=== PATIENT | female | born 1975 | race Two or more races ===

== ENCOUNTER 2024-07-23 03:31 | Inpatient (IN) | payer MEDICAID, OTHER ==
[~2024-07-23] VITALS: Ht 154.9 cm; Wt 54.5 kg
--- NOTE | 2024-07-23 03:59 | ED.PDOC ---
History of Present Illness HPI Comments 49-year-old female complained of some constipation for the last 2 days but then take some MiraLax and now has had some loose stools and abdominal cramping diffusely for the last 1 day. Patient was brought in by EMS Chief Complaint: Constipation Time Seen by MD: 03:44 Allergies: Coded Allergies: Penicillins (Verified Allergy, Unknown, 07/23/24) Information Source: Patient Mode of Arrival: EMS Severity: Moderate Timing: Days Past Medical History PAST MEDICAL HISTORY: Denies Surgical History: Unknown Constitutional: reports: malaise Gastrointestinal: reports: abdominal pain, constipated, diarrhea Physical Exam General Appearance: Mild Distress HEENT: Normal ENT Inspection, Pharynx Normal, TMs Normal Neck: Full Range of Motion, Non-Tender, Normal, Normal Inspection Respiratory: Chest Non-Tender, Lungs Clear, No Accessory Muscle Use, No Respiratory Distress, Normal Breath Sounds Cardiovascular: No Edema, No JVD, No Murmur, No Gallop, Normal Peripheral Pulses, Regular Rate/Rhythm Breast Exam: Deferred Gastrointestinal: No Organomegaly, Non Tender, No Pulsatile Mass, Normal Bowel Sounds, Soft Genitalia: Deferred Pelvic: Deferred Rectal: Deferred Extremities: No calf tenderness, Normal capillary refill, Normal inspection, Normal range of motion, Non-tender, No pedal edema Musculoskeletal : Apperance: Normal Neurologic: Alert, information security officer II-XII nml as Tested, No Motor Deficits, Normal Affect, Normal Mood, No Sensory Deficits Cerebellar Function: Normal Reflexes: Normal Skin: Dry, Normal Color, Warm Lymphatic: No Adenopathy Was a procedure done? Was a procedure done?: No Differential Dx Considerations may include: Differential diagnosis includes but is not limited to: appendicitis, divert iculitis, colitis, urinary tract infection, ureteral colic / stone, bowel obstruction, and others X-Ray, Labs, Meds, VS Vital Signs Date Time Temp Pulse Resp B/P (MAP) Pulse Ox O2 Delivery O2 Flow Rate FiO2 07/23/24 04:59 16 99 Room Air* 0 21 07/23/24 04:47 97.6 89 22 106/76 (86) 100 97.6 07/23/24 03:37 96.6 69 18 156/90 (112) 96 Lab Test 07/23/24 05:00 07/23/24 04:05 Range/Units Urine Color Pending Urine Clarity Pending Urine pH Pending Urine Specific [place] Pending Urine Protein Pending Urine Ketones Pending Urine Blood Pending Urine Nitrite Pending Urine Bilirubin Pending Urine Urobilinogen Pending Urine Leukocyte Esterase Pending Urine RBC Pending Urine Microscopic WBC Pending Urine Squamous Epithelial Cells Pending Urine Bacteria Pending Urine Glucose Pending White Blood Count 18.4 H 4.4-10.8 10^3/uL Red Blood Count 5.15 4.0-5.20 10^6/uL Hemoglobin 15.2 12.2-16.2 g/dL Hematocrit 46.5 H 36.0-46.0 % Mean Corpuscular Volume 90.4 80.0-100.0 fL Mean Corpuscular Hemoglobin 29.6 28.0-32.0 pg Mean Corpuscular Hemoglobin Concent 32.7 32.0-36.0 g/dL Red Cell Distribution Width 15.9 H 11.8-14.3 % Platelet Count 362 140-450 10^3/uL Mean Platelet Volume 9.0 6.9-10.8 fL Neutrophils (%) (Auto) 77.0 37.0-80.0 % Lymphocytes (%) (Auto) 17.9 10.0-50.0 % Monocytes (%) (Auto) 4.2 0.0-12.0 % Eosinophils (%) (Auto) 0.6 0.0-7.0 % Basophils (%) (Auto) 0.3 0.0-2.0 % Neutrophils # (Auto) 14.1 H 1.6-8.6 10 ^3/uL Lymphocytes # (Auto) 3.3 0.4-5.4 10 ^3/uL Monocytes # (Auto) 0.8 0-1.3 10 ^3/uL Eosinophils # (Auto) 0.1 0-0.8 10 ^3/uL Basophils # (Auto) 0.1 0-0.2 10 ^3/uL Nucleated Red Blood Cells 0.1 % Sodium Level Pending Potassium Level Pending Chloride Level Pending Carbon Dioxide Level Pending Anion Gap Pending Blood Urea Nitrogen Pending Creatinine Pending Glomerular Filtration Rate Calc Pending BUN/Creatinine Ratio Pending Serum Glucose Pending Calcium Level Pending Total Bilirubin Pending Aspartate Amino Transferase (AST) Pending Alanine Aminotransferase (ALT) Pending Alkaline Phosphatase Pending Total Protein Pending Albumin Pending Lipase Pending Current Medications Medications (Trade) Dose Ordered Sig/Evan Route Start Time Stop Time Status Last Admin Ondansetron HCl (Zofran Po) 8 mg ONCE ONCE PO 07/23/24 03:45 07/23/24 03:47 DC 07/23/24 04:53 Acetaminophen/ Hydrocodone Bitart (Brut[place] 10/325MG Tab) 1 tab ONCE ONCE PO 07/23/24 03:45 07/23/24 03:47 DC 07/23/24 04:53 Time of 1ST Reevaluation: 03:56 Reevaluation 1ST: Unchanged Patient Education/Counseling: Diagnosis, Treatment Family Education/Counseling: No Family Present Departure 1 Departure Time of Disposition: 05:00 Impression: Primary Impression: Abdominal pain Disposition: 01 HOME / SELF CARE / HOMELESS Condition: Stable Discharged With: Self Critical Care Note Critical Care Time?: No Stability Stability form required: No Heart Score Heart Score: Heart Score Response (Comments) Value History N/A 0 EKG N/A 0 Age N/A 0 Risk Factors N/A 0 Troponin N/A 0 Total 0 SUKUMAR MALAGON MD Jul 23, 2024 03:58
--- NOTE | 2024-07-23 04:45 | DVH ---
Date: 07/23/2024 04:31 AM Examination: XY KUB ABDOMEN SINGLE VIEW History: abd pain, diarrhea Comparison: None TECHNIQUE: Frontal views of the abdomen was obtained. FINDINGS: Bowel gas pattern is unremarkable. Surgical clips project over the right upper quadrant. The lung bases are unremarkable. No acute osseous abnormality identified. IMPRESSION: Nonobstructive bowel gas pattern.
[2024-07-23 04:46] LABS: Basophils # (auto) 0.1 10 ^3/uL (0-0.2); Basophils % (auto) 0.3 % (0.0-2.0); Eosinophils # (auto) 0.1 10 ^3/uL (0-0.8); Eosinophils % (auto) 0.6 % (0.0-7.0); Hematocrit 46.5 % (36.0-46.0); Hemoglobin 15.2 g/dL (12.2-16.2); Lymphocytes # (auto) 3.3 10 ^3/uL (0.4-5.4); Lymphocytes % (auto) 17.9 % (10.0-50.0); Mean Corpuscular Hemoglobin 29.6 pg (28.0-32.0); Mean Corpuscular Hgb Conc. 32.7 g/dL (32.0-36.0); Mean Corpuscular Volume 90.4 fL (80.0-100.0); Monocytes # (auto) 0.8 10 ^3/uL (0-1.3); Monocytes % (auto) 4.2 % (0.0-12.0); Neutrophils # (auto) 14.1 10 ^3/uL (1.6-8.6); Nucleated Red Blood Cells % 0.1 %; Platelet Count (auto) 362 10^3/uL (140-450); Red Blood Cells 5.15 10^6/uL (4.0-5.20); Red Cell Distribution Width 15.9 % (11.8-14.3); White Blood Cell 18.4 10^3/uL (4.4-10.8)
[2024-07-23] MEDS: HYDROcodone-ACET 10/325MG TAB PO ONE (04:53)
[2024-07-23] MEDS: ONDANSETRON ODT 4 MG TAB PO ONE (04:53)
[2024-07-23 04:59] VITALS: RESP 16; O2SAT 99
[2024-07-23 05:02] LABS: Alanine Aminotransferase 23 U/L (7-40); Alkaline Phosphatase 111 U/L (46-116); Anion Gap 8 (5-15); Aspartate Aminotransferase 19 U/L (13-40); BUN/Creatinine Ratio 10.7 (10.0-20.0); Calcium 10.2 mg/dL (8.7-10.4); Carbon Dioxide 29 mmol/L (20-31); Chloride 103 mmol/L (98-107); Potassium 3.6 mmol/L (3.5-5.1); Sodium 140 mmol/L (136-145)
[2024-07-23 05:03] LABS: Bilirubin, Total 0.5 mg/dL (0.2-1.0); Total Protein 7.7 g/dL (5.7-8.2)
[2024-07-23 05:15] LABS: Albumin 4.9 g/dL (3.2-4.8); Blood Urea Nitrogen 8 mg/dL (9-23); Glucose 118 mg/dL (74-106); Lipase 103 U/L (12-53)
[2024-07-23] MEDS: SODIUM CHLORIDE 0.9% 1,000 ML IV ONE (05:48)
[2024-07-23] MEDS: IOHEXOL 300 MG/ML 100ML BOTTLE IJ ONE (06:08)
--- NOTE | 2024-07-23 06:23 | DVH ---
EXAM: CT Abdomen and Pelvis With Intravenous Contrast CLINICAL INDICATION: abd pain TECHNIQUE: Axial computed tomography images of the abdomen and pelvis with intravenous contrast. Th is CT exam was performed using one or more of the following dose reduction techniques: automated exp osure control, adjustment of the mA and/or kV according to patient size, and/or use of iterative omari nstruction technique. CONTRAST: COMPARISON: None FINDINGS: LUNG BASES: Unremarkable. No mass. No consolidation. MEDIASTINUM: Small esophageal hiatal hernia. ABDOMEN: LIVER: Hepatomegaly with fatty infiltration. GALLBLADDER AND BILE DUCTS: Gallbladder is surgically absent. No ductal dilation. PANCREAS: Unremarkable. No mass. No ductal dilation. SPLEEN: Unremarkable. No splenomegaly. ADRENALS: Unremarkable. No mass. KIDNEYS AND URETERS: Unremarkable. No stones within either kidney. No hydronephrosis. STOMACH AND BOWEL: Fluid-filled bowels with air-fluid levels may suggest enterocolitis. No pneumope ritoneum or bowel obstruction. Clinical correlation is recommended. PELVIS: APPENDIX: No findings to suggest acute appendicitis. BLADDER: Unremarkable. No mass. REPRODUCTIVE: Unremarkable as visualized. ABDOMEN and PELVIS: INTRAPERITONEAL SPACE: See above. BONES/JOINTS: No acute fracture. No dislocation. SOFT TISSUES: Umbilical hernia containing fat. VASCULATURE: Unremarkable. No abdominal aortic aneurysm. LYMPH NODES: Unremarkable. No enlarged lymph nodes. OTHER FINDINGS: . IMPRESSION: 1. Fluid-filled bowels with air-fluid levels may suggest enterocolitis. No pneumoperitoneum or bowel obstruction. Clinical correlation is recommended. 2. Hepatomegaly with fatty infiltration. 3. Small esophageal hiatal hernia. 4. Umbilical hernia containing fat. 5. No obstructive uropathy.
[2024-07-23 06:25] LABS: Urine Amorphous Crystal FEW /hpf (None Seen); Urine Bacteria FEW /hpf (None Seen); Urine Blood TRACE /uL (Negative); Urine Clarity Turbid (Clear); Urine Color Yellow (Yellow); Urine Mucus FEW (None Seen); Urine Protein, UAD 1+ (Negative); Urine Specific Gravity 1.026 (1.001-1.035); Urine Squamous Epithelial Cell MOD /hpf (<5); Urine Urobilinogen Normal (Negative); Urine WBC 4 /HPF (0-5)
[2024-07-23] MEDS ORDERED: ceFAZolin 2 GM/D5W50ml 50 ML IV ONE (07:30)
[2024-07-23] MEDS: metroNIDAZOLE 500MG/100ML 100 ML IV ONE (07:47)
[2024-07-23] MEDS: CEFEPIME 2GM/50ML NS 50 ML IV ONE (09:18)
[2024-07-23] MEDS ORDERED: SODIUM CHLORIDE 0.9% 1,000 ML IV SCH (14:15)
[2024-07-23] MEDS ORDERED: MORPHINE SULFATE INJ 2 MG/ml SYRG IV PRN (14:15)
[2024-07-23] MEDS ORDERED: HYDROcodone-ACET 5/325MG TAB PO PRN (14:15)
[2024-07-23] MEDS ORDERED: ONDANSETRON HCL 4 MG/2 ML VIAL IV PRN (14:15)
[2024-07-23] MEDS ORDERED: ACETAMINOPHEN 325 MG TAB PO PRN (14:15)
--- NOTE | 2024-07-23 14:18 | DVHHP2 ---
History of Present Illness Reason for Visit: Abdominal pain History of Present Illness 49-year-old female with a known history of chronic asthma, previous history of partial abdominal hysterectomy, cholecystectomy who initially presented to the hospital with abdominal pain. Patient stated that she was scheduled for colonoscopy by gastric polyp tomorrow and she was given GoLYTELY. After starting dialysis started having worsening abdominal pain. Patient was eventually came to ER, CT abdominal pelvis was done which gradually enterocolitis. Patient denies any vomiting but does complain of nausea. Denies any fever chills neurologic any diarrhea. Pulmonary: Asthma Past Surgical History: Cholecystectomy, Hysterectomy Family History: None Review of Systems Review of Systems Twelve review of systems are negative besides mentioned above. Allergies: Coded Allergies: Penicillins (Verified Allergy, Unknown, 07/23/24) Exam Vital Signs Vital Signs Date Time Temp Pulse Resp B/P (MAP) Pulse Ox O2 Delivery O2 Flow Rate FiO2 07/23/24 12:37 97.8 100 18 106/69 (81) 99 97.8 07/23/24 04:59 Room Air* 0 21 Exam HEENT pupils are reactive Neck is supple CVS S1-S2 regular rate and rhythm GI positive bowel sound, soft nondistended nontender no guarding no rigidity. Extremity no edema ORDERLY no motor deficit Labs/Xrays Labs Test 07/23/24 05:00 07/23/24 04:05 Range/Units Urine Color Yellow Yellow Urine Clarity Turbid H Clear Urine pH 7.0 5.0-9.0 Urine Specific [place] 1.026 1.001-1.035 Urine Protein 1+ H Negative Urine Ketones Negative Negative Urine Blood Trace H Negative /uL Urine Nitrite Negative Negative Urine Bilirubin Negative Negative Urine Urobilinogen Normal Negative mg/dL Urine Leukocyte Esterase Negative Negative /uL Urine RBC 4 0 - 4 /hpf Urine Microscopic WBC 4 0-5 /HPF Urine Squamous Epithelial Cells Mod <5 /hpf Urine Amorphous Crystals Few None Seen /hpf Urine Bacteria Few H None Seen /hpf Urine Mucus Few None Seen Urine Glucose Trace Normal mg/dL White Blood Count 18.4 H 4.4-10.8 10^3/uL Red Blood Count 5.15 4.0-5.20 10^6/uL Hemoglobin 15.2 12.2-16.2 g/dL Hematocrit 46.5 H 36.0-46.0 % Mean Corpuscular Volume 90.4 80.0-100.0 fL Mean Corpuscular Hemoglobin 29.6 28.0-32.0 pg Mean Corpuscular Hemoglobin Concent 32.7 32.0-36.0 g/dL Red Cell Distribution Width 15.9 H 11.8-14.3 % Platelet Count 362 140-450 10^3/uL Mean Platelet Volume 9.0 6.9-10.8 fL Neutrophils (%) (Auto) 77.0 37.0-80.0 % Lymphocytes (%) (Auto) 17.9 10.0-50.0 % Monocytes (%) (Auto) 4.2 0.0-12.0 % Eosinophils (%) (Auto) 0.6 0.0-7.0 % Basophils (%) (Auto) 0.3 0.0-2.0 % Neutrophils # (Auto) 14.1 H 1.6-8.6 10 ^3/uL Lymphocytes # (Auto) 3.3 0.4-5.4 10 ^3/uL Monocytes # (Auto) 0.8 0-1.3 10 ^3/uL Eosinophils # (Auto) 0.1 0-0.8 10 ^3/uL Basophils # (Auto) 0.1 0-0.2 10 ^3/uL Nucleated Red Blood Cells 0.1 % Sodium Level 140 136-145 mmol/L Potassium Level 3.6 3.5-5.1 mmol/L Chloride Level 103 98-107 mmol/L Carbon Dioxide Level 29 20-31 mmol/L Anion Gap 8 5-15 Blood Urea Nitrogen 8 L 9-23 mg/dL Creatinine 0.75 0.550-1.02 mg/dL Glomerular Filtration Rate Calc 99 >90 mL/min BUN/Creatinine Ratio 10.7 10.0-20.0 Serum Glucose 118 H 74-106 mg/dL Lactic Acid Level 1.6 0.4-2.0 mmol/L Calcium Level 10.2 8.7-10.4 mg/dL Total Bilirubin 0.5 0.2-1.0 mg/dL Aspartate Amino Transferase (AST) 19 13-40 U/L Alanine Aminotransferase (ALT) 23 7-40 U/L Alkaline Phosphatase 111 46-116 U/L Total Protein 7.7 5.7-8.2 g/dL Albumin 4.9 H 3.2-4.8 g/dL Lipase 103 H 12-53 U/L Assessment/Plan Assessment/Plan 49-year-old female with a known history of chronic asthma, abdominal pain was scheduled for colonoscopy as an outpatient presented to the hospital with worsening abdominal pain after drinking GoLYTELY found to have 1. Abdominal pain/enterocolitis 2. Chronic asthma -admit to med surge, IV fluids, pain meds, clear liquid diet and advance as tolerated [facility] was consulted who recommended outpatient follow up with them no indication for inpatient colonoscopy. Plan discussed with: Patient My Orders Orders - LUCY WILL MD Procedure Category Date Status Time Admit ADMIT 07/23/24 Transmitted 14:07 Code Status CODE 07/23/24 Transmitted 14:07 0.9% Ns 1000 Ml PHA 07/23/24 Transmitted 14:15 Hydrocodone-Acet PHA 07/23/24 Transmitted 5/325mg Tab ([place] 14:15 Ondansetron Hcl PHA 07/23/24 Transmitted (Zofran) 14:15 Complete Blood Count LAB 07/24/24 Verified 04:00 Comprehensive LAB 07/24/24 Verified Metabolic Panel 04:00 Condition: Fair STEPAN 07/23/24 Transmitted 14:07 Acetaminophen Tablet PHA 07/23/24 Transmitted (Tylenol Tablet) 14:15 Clear Liq Diet DIET 07/23/24 Transmitted Dinner Morphine Sulfate PHA 07/23/24 Transmitted Injection 14:15 Date of Service: Jul 23, 2024 Billing Provider: LUCY WILL MD Common Visit Codes: NOT BILLABLE LUCY WILL MD Jul 23, 2024 14:18
[2024-07-23] MEDS ORDERED: cefTRIAXone 1GM/50ML D5W 50 ML IV SCH (14:30)
[2024-07-23] MEDS ORDERED: metroNIDAZOLE 500MG/100ML 100 ML IV SCH (14:30)
[2024-07-23 17:11] VITALS: BP 132/61; PULSE 82; RESP 20; TEMP 97.6; O2SAT 98
[2024-07-23 17:42] VITALS: BP 132/64; PULSE 82; RESP 18; RESP 20; TEMP 97.6; O2SAT 98
[2024-07-23 20:00] VITALS: PULSE 90
[2024-07-23] MEDS: ONDANSETRON HCL 4 MG/2 ML VIAL IV PRN (20:56)
[2024-07-23] MEDS: HYDROcodone-ACET 5/325MG TAB PO PRN (20:58)
[2024-07-23] MEDS: ACETAMINOPHEN 325 MG TAB PO PRN (20:58)
[2024-07-23 21:00] VITALS: BP 103/74; PULSE 82; RESP 16; TEMP 98.1; O2SAT 96
[2024-07-23] MEDS: metroNIDAZOLE 500MG/100ML 100 ML IV SCH (22:00)
[2024-07-23] MEDS: SODIUM CHLORIDE 0.9% 1,000 ML IV SCH (22:50)
[2024-07-24] VITALS (7 sets, daily range): BP systolic 101–137; BP diastolic 62–82; PULSE 79–83; RESP 16–20; TEMP 97.8–98.3; O2SAT 96–98
[2024-07-24] MEDS: MORPHINE SULFATE INJ 2 MG/ml SYRG IV PRN (06:01)
[2024-07-24 06:42] LABS: Alanine Aminotransferase 19 U/L (7-40); Albumin 3.8 g/dL (3.2-4.8); Alkaline Phosphatase 94 U/L (46-116); Anion Gap 9 (5-15); Aspartate Aminotransferase 18 U/L (13-40); BUN/Creatinine Ratio 7.5 (10.0-20.0); Carbon Dioxide 23 mmol/L (20-31); Potassium 3.5 mmol/L (3.5-5.1); Sodium 140 mmol/L (136-145)
[2024-07-24 06:43] LABS: Bilirubin, Total 0.4 mg/dL (0.2-1.0)
[2024-07-24 06:44] LABS: Blood Urea Nitrogen 5 mg/dL (9-23); Calcium 8.2 mg/dL (8.7-10.4); Chloride 108 mmol/L (98-107); Glucose 109 mg/dL (74-106)
[2024-07-24 06:58] LABS: Basophils # (auto) 0.1 10 ^3/uL (0-0.2); Basophils % (auto) 1.3 % (0.0-2.0); Eosinophils # (auto) 0.2 10 ^3/uL (0-0.8); Hematocrit 41.1 % (36.0-46.0); Hemoglobin 13.5 g/dL (12.2-16.2); Lymphocytes # (auto) 2.7 10 ^3/uL (0.4-5.4); Lymphocytes % (auto) 30.4 % (10.0-50.0); Mean Corpuscular Hemoglobin 29.7 pg (28.0-32.0); Mean Corpuscular Hgb Conc. 32.7 g/dL (32.0-36.0); Mean Corpuscular Volume 90.6 fL (80.0-100.0); Monocytes # (auto) 0.5 10 ^3/uL (0-1.3); Monocytes % (auto) 5.3 % (0.0-12.0); Neutrophils # (auto) 5.3 10 ^3/uL (1.6-8.6); Nucleated Red Blood Cells % 0.2 %; Platelet Count (auto) 140 10^3/uL (140-450); Red Blood Cells 4.54 10^6/uL (4.0-5.20); Red Cell Distribution Width 15.3 % (11.8-14.3); White Blood Cell 8.8 10^3/uL (4.4-10.8)
[2024-07-24] MEDS: cefTRIAXone 1GM/50ML D5W 50 ML IV SCH (09:21)
--- NOTE | 2024-07-24 13:36 | DVHDS2 ---
Discharge Summary Date of Admission Jul 23, 2024 at 14:07 Date of Discharge: Jul 24, 2024 Labs/Diagnostic Data: Laboratory Results Test 07/24/24 05:47 07/23/24 05:00 07/23/24 04:05 White Blood Count 8.8 10^3/uL (4.4-10.8) Red Blood Count 4.54 10^6/uL (4.0-5.20) Hemoglobin 13.5 g/dL (12.2-16.2) Hematocrit 41.1 % (36.0-46.0) Mean Corpuscular Volume 90.6 fL (80.0-100.0) Mean Corpuscular Hemoglobin 29.7 pg (28.0-32.0) Mean Corpuscular Hemoglobin Concent 32.7 g/dL (32.0-36.0) Red Cell Distribution Width 15.3 % (11.8-14.3) Platelet Count 140 10^3/uL (140-450) Mean Platelet Volume 9.8 fL (6.9-10.8) Neutrophils (%) (Auto) 61.0 % (37.0-80.0) Lymphocytes (%) (Auto) 30.4 % (10.0-50.0) Monocytes (%) (Auto) 5.3 % (0.0-12.0) Eosinophils (%) (Auto) 2.0 % (0.0-7.0) Basophils (%) (Auto) 1.3 % (0.0-2.0) Neutrophils # (Auto) 5.3 10 ^3/uL (1.6-8.6) Lymphocytes # (Auto) 2.7 10 ^3/uL (0.4-5.4) Monocytes # (Auto) 0.5 10 ^3/uL (0-1.3) Eosinophils # (Auto) 0.2 10 ^3/uL (0-0.8) Basophils # (Auto) 0.1 10 ^3/uL (0-0.2) Nucleated Red Blood Cells 0.2 % Sodium Level 140 mmol/L (136-145) Potassium Level 3.5 mmol/L (3.5-5.1) Chloride Level 108 mmol/L (98-107) Carbon Dioxide Level 23 mmol/L (20-31) Anion Gap 9 (5-15) Blood Urea Nitrogen 5 mg/dL (9-23) Creatinine 0.67 mg/dL (0.550-1.02) Glomerular Filtration Rate Calc 108 mL/min (>90) BUN/Creatinine Ratio 7.5 (10.0-20.0) Serum Glucose 109 mg/dL (74-106) Calcium Level 8.2 mg/dL (8.7-10.4) Total Bilirubin 0.4 mg/dL (0.2-1.0) Aspartate Amino Transferase (AST) 18 U/L (13-40) Alanine Aminotransferase (ALT) 19 U/L (7-40) Alkaline Phosphatase 94 U/L (46-116) Total Protein 6.0 g/dL (5.7-8.2) Albumin 3.8 g/dL (3.2-4.8) Urine Color Yellow (Yellow) Urine Clarity Turbid (Clear) Urine pH 7.0 (5.0-9.0) Urine Specific [place] 1.026 (1.001-1.035) Urine Protein 1+ (Negative) Urine Ketones Negative (Negative) Urine Blood Trace /uL (Negative) Urine Nitrite Negative (Negative) Urine Bilirubin Negative (Negative) Urine Urobilinogen Normal mg/dL (Negative) Urine Leukocyte Esterase Negative /uL (Negative) Urine RBC 4 /hpf (0 - 4) Urine Microscopic WBC 4 /HPF (0-5) Urine Squamous Epithelial Cells Mod /hpf (<5) Urine Amorphous Crystals Few /hpf (None Seen) Urine Bacteria Few /hpf (None Seen) Urine Mucus Few (None Seen) Urine Glucose Trace mg/dL (Normal) Lactic Acid Level 1.6 mmol/L (0.4-2.0) Lipase 103 U/L (12-53) Other Laboratory Tests 07/24/24 05:47 Brief Hx & Hospital Course: 49-year-old female with a known history of chronic asthma, abdominal pain was scheduled for colonoscopy as an outpatient presented to the hospital with worsening abdominal pain after drinking GoLYTELY found to have intractable abdominal pain. Patient was has a elevated white count patient was denying any fevers chills. Consult GI was consulted who recommended outpatient follow up for colonoscopy. Patient was CTs shows evidence of questionable enterocolitis versus fluid-filled bowels which it was secondary to GoLYTELY. Patient currently being discharged under stable condition. Condition at Discharge: Stable Final Diagnosis/Problems List Abdominal pain resolved Leukocytosis likely reactive resolved Discharge Disposition: Home SNF Discharge Will this Physician continue t: No Discharge Instruct/Medications Diet: Regular Activity: No Restrictions, As Tolerated Follow Up/Referral: Please follow up with the PCP and GI in 1-2 weeks as scheduled Medications: Resume home medications Discharge Statement: "Patient was advised to return to the ER or call 911 if any headaches, dizziness, shortness of breath, chest pain, abdominal pain, bleeding, fevers, or worsening of medical condition. Patient was counseled about treatment plan, medications, possible side effects, patientverbalized understanding. All questions were answered to the best of my ability. This discharge took greater then 30 minutes in planning, reviewing documentation, counseling the patient, and discussing with other team members." ASSESSMENT ASSESSMENT Assessment Abdominal pain resolved Leukocytosis likely reactive resolved Date of Service: Jul 24, 2024 Billing Provider: LUCY WILL MD Common Visit Codes: NOT BILLABLE LUCY WILL MD Jul 24, 2024 13:36
== END 2024-07-24 17:10 | disposition home or self-care (01) | DRG 248 ==
LOC: ER 03:31 → EDBD 03:31 → OVERFLOW 14:07 → EAST 14:13 → ER 14:13 → EAST 17:08
PROVIDERS: ADMIT Internal Medicine; ATTEND Internal Medicine
DX: A04.9 Bacterial intestinal infection, unspecified (principal); J45.909 Unspecified asthma, uncomplicated; K59.00 Constipation, unspecified; Z88.0 Allergy status to penicillin; Z90.710 Acquired absence of both cervix and uterus; Z90.49 Acquired absence of other specified parts of digestive tract
CPT/HCPCS: 36415; 74018; 74177; 80053; 81001; 83605; 83690; 85025; 87040; G0378; J0692; J2405; J3490; Q0162